=== PATIENT | male | born 1950 | race African-American/Black ===

== ENCOUNTER 2017-02-26 18:51 | Inpatient (IN) | payer OTHER ==
--- NOTE | ~2017-02-26 | CO ---
Unit #: [id number] #: [id number] Patient: GONZALO RUFFIN [id number] [facility] [address] [place], [place] [address] [id number] I MR#: [id number] NAME: GONZALO RUFFIN ROOM: [facility] Age: 66 Sex: M Admission Date: 02/27/2017 : 1950 Attending Physician: Sung Lora M.D. Primary Care Physician: No Primary Care Physician CONSULTATION REPORT REASON FOR CONSULTATION Medical management. HISTORY This pleasant 66-year-old male with hypertension and dementia, is admitted to the surgical service for a duodenal mass with possible perforation. Patient himself is a poor historian, and gives history. The patient noted an abdominal nodule near the umbilicus and underwent excision at [facility] last week. They were to see Dr. Salazar tomorrow. However, late last evening he developed nausea, vomiting, some abdominal discomfort and was brought to this emergency department where a CT scan shows an obstructing duodenal mass, with obstruction, and possible perforation. There is suggestion on the CT scan that be duodenal mass, which abuts the undersurface of the pancreas, does have metastatic disease. It is thought that the malignancy is in the duodenum itself, although could not exclude primary pancreatic malignancy. This case was discussed with [facility], and also Dr. Salazar. Dr. Salazar states that pathology of the umbilical mass last week is positive for adenocarcinoma. PAST MEDICAL HISTORY 1. Dementia. 2. Hypertension. 3. Anxiety. 4. Umbilical mass removed last week at [facility]. 5. Colonoscopy with polyps removed. ALLERGIES None. HOME MEDICATIONS Amlodipine, benazepril, BuSpar, Namenda, Aricept, oxycodone, HCTZ. FAMILY HISTORY Malignancy. SOCIAL HISTORY The patient lives with his . He was smoking one pack per day of tobacco until last week, does not drink alcohol. REVIEW OF SYSTEMS Impossible to obtain due to patient's dementia. Unit #: [id number] #: [id number] Patient: GONZALO RUFFIN PHYSICAL EXAMINATION GENERAL: Pleasantly confused 66-year-old male currently in no acute distress. VITAL SIGNS: Temperature 98.5, pulse 98, respirations 16, blood pressure 139/90, O2 saturation 100% on room air. HEENT: Eyes - PERRLA, extraocular muscles are intact. Pharynx is benign with poor dentition. NECK: Supple without adenopathy or thyromegaly. CHEST: Clear. CARDIAC: Normal S1 and S2 without S3, S4, or murmur. ABDOMEN: Bowel sounds are somewhat hyperactive. Patient does have mild epigastric tenderness. He has a healing incision of the mid abdomen with Steri-Strips still in place. No definite hepatosplenomegaly or masses. EXTREMITIES: Without clubbing, cyanosis or edema. Pedal pulses are diminished. NEUROLOGIC: Patient is pleasantly confused, oriented only to person. His cranial nerves are intact. He has equal strength throughout. DIAGNOSTIC STUDIES LABORATORY STUDIES: Hematocrit is 45.1, normal white count, platelet count and coags. SMA 12 is normal. Urinalysis is negative except for 1+ protein. Cardiac markers are negative. IMAGING STUDIES: Chest x-ray - 7 mm left upper quadrant calcification. CT scan shows an obstructing mass measuring about 4.2 cm of the distal duodenum, likely consistent with a primary duodenal malignancy. However, the duodenal mass abuts the undersurface of the pancreas, though cannot exclude a pancreatic malignancy. Evidence of obstruction with dilation of the stomach and proximal duodenum. Pneumoperitoneum and a small amount of ascites consistent with perforation. Left adrenal nodule and abnormal lymph node worrisome for metastatic disease. CARDIOLOGY STUDIES: EKG shows a sinus rhythm, rate 75 with occasional APC and right bundle branch block. ASSESSMENT 1. 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 This appears to be metastatic both by CT scan, and the fact that a skin nodule removed near the umbilicus last week at [facility] was positive for adenocarcinoma. 2. Dementia. 3. Hypertension. PLANS 1. Will check a CA 19-9 in the morning and consult oncology. 2. Blood pressure medications will be changed to an alternative route and will give p.r.n. medications for agitation. 3. SCDs for DVT prophylaxis. 4. Antibiotics, IV fluids, PPI, etc, have been ordered by the attending surgeries. Thank you very much for this consult, will follow with you. Dictated by... Unit #: [id number] #: [id number] Patient: GONZALO RUFFIN M.D. AML/ts TD: 02/27/2017 05:58 JOB #: [id number] CONSULTATION REPORT Page 1 of 1 X Yeny Tello MD CONSULTATION REPORT
--- NOTE | ~2017-02-26 | HP ---
Unit #: [id number] #: [id number] Patient: GONZALO RUFFIN [id number] [facility]. [place], [place] [address] [id number] I MR#: [id number] NAME: GONZALO RUFFIN ROOM: [facility] Age: 66 Sex: M Admission Date: 02/27/2017 : 1950 Attending Physician: Sung Lora M.D. Primary Care Physician: No Primary Care Physician HISTORY AND PHYSICAL HISTORY AND EXAM Mr. Ruffin is a 66-year-old gentleman with dementia and agitation who came to the emergency department because of nausea, vomiting, and abdominal pain. By history he had undergone a periumbilical biopsy of a mass last week at [facility] and it turned out to be adenocarcinoma. Here in the ER a CT scan of the abdomen an pelvis was performed and it showed an obstructing duodenal mass with evidence of metastatic disease and a probable contained retroperitoneal perforation. The mass appears to be centered around the junction of the third and fourth portion of the duodenum, abutting the pancreatic head. From the study done, it is hard to assess if there is any involvement of the vessels in this area. The patient had an NG tube placed to decompress his markedly enlarged stomach but due to his dementia and agitation he has since pulled that out. PAST MEDICAL HISTORY Dementia, hypertension, anxiety, recent biopsy of an umbilical mass, previous colonoscopy with polypectomy. ALLERGIES No allergy to medication. HOME MEDICATIONS Include amlodipine, benazepril, BuSpar, Namenda, Aricept, oxycodone, and hydrochlorothiazide. FAMILY HISTORY Unknown. SOCIAL HISTORY Lives at home with his . He has grown children who are not here. He continues to smoke a pack a day. His denies the use of alcohol or recreational drugs. REVIEW OF SYSTEMS Unobtainable but his says he has not had any fever, chills, hematemesis, hematochezia, or melena. CURRENT PHYSICAL EXAMINATION GENERAL: The patient has been sedated in the ICU due to his agitation. Again patient is lethargic and agitated when you would try to exam him. Limited exam was done. VITAL SIGNS: His temperature is 98.1, pulse 68, respirations 14, blood pressure 120/66, O2 sats are 98% on 2 L. HEART: Regular rhythm. Unit #: [id number] #: [id number] Patient: GONZALO RUFFIN LUNGS: Clear. ABDOMEN: Nondistended and soft. There is no rebound tenderness. It is somewhat slightly full and distended in the epigastrium. EXTREMITIES: No edema. NEUROLOGIC: Not done. DIAGNOSTIC STUDIES LABORATORY STUDIES: Comprehensive metabolic panel was within normal limits. INR is 1.1, white count 7,700, hemoglobin 14.7, platelets 258,000. CA 19-9 pending. Urinalysis - negative for infection. IMAGING STUDIES: CT scan as described. ASSESSMENT AND PLAN 66-year-old gentleman with dementia, has a completely obstructing duodenal mass in the junction of the third and fourth portion of the duodenum abutting the pancreatic head. On CT scan there is evidence of metastatic disease and localized retroperitoneal perforation. The position of this mass and the fact that it is perforated and there is evidence of metastatic disease, as well as biopsy proven metastatic disease to the periumbilical area make surgery nearly prohibitive. This would require a Whipple procedure but before that could be done, studies would need to be done to see if there is any involvement of the superior mesenteric vessels of the portal vein. Given his dementia, perioperative care would be very difficult. Medical oncology has been consulted to consider chemotherapy but again given his advanced dementia I do not know how well he would tolerate that. Replacing his NG tube is probably futile and may actually initiate vomiting and aspiration. If the family decides not to pursue any surgery, then percutaneous endoscopic gastrostomy tube could be placed to allow gastric decompression. I discuss this at length with his . We also discussed the possibility of Hospice care. All of her questions were answered. We will await medical oncology input before making a final decision. Dictated by Donald Goodwin TD: 02/27/2017 08:11 JOB #: [id number] HISTORY AND PHYSICAL Page 1 of 1 X Vernon Chinchilla MD HISTORY AND PHYSICAL
--- NOTE | ~2017-02-26 | DS ---
Unit #: [id number] #: [id number] Patient: GONZALO RUFFIN [id number] [facility] [address] [facility]. [place], [place] [address] [id number] I MR#: [id number] NAME: GONZALO RUFFIN ROOM: 467 Age: 66 Sex: M Admission Date: 02/27/2017 : 1950 Discharge Date: 03/02/2017 Attending Physician: Sung Lora M.D. Primary Care Physician: Primary Care Physician No DISCHARGE SUMMARY HOSPITAL COURSE Mr. Ruffin is a 66-year-old gentleman, who has some dementia, who presented to the emergency room at [facility] with progressive nausea, vomiting, and abdominal pain. After he was evaluated, we found that he had a biopsy-proven adenocarcinoma and a CT scan in the ER revealed that he had an obstructing duodenal mass with a contained retroperitoneal perforation. On the CT scan, there was evidence of metastatic disease as well. After full discussion of options with the patient and family, it was decided that this would not be a resectable lesion and they did not want to undergo chemotherapy after discussion of adjuvant therapy options with Medical Oncology. Because he was completely obstructed and because of his dementia, we were unable to keep an NG tube down, but once we got an NG tube down and got his stomach decompressed, he was taken to endoscopy where a percutaneous endoscopic gastrostomy tube was placed to allow ongoing decompression of his stomach. Hospice has been consulted and once he has been seen by hospice, he will be discharged home under hospice care. Dictated by... Donald Goodwin/andres TD: 03/04/2017 03:08 JOB #: [id number] DISCHARGE SUMMARY Page 1 of 1 X Vernon Chinchilla MD X DISCHARGE SUMMARY
--- NOTE | ~2017-02-26 | CT2 ---
[facility] A Service of [facility] & [facility] RADIOLOGY TEXT RESULTS PATIENT: GONZALO RUFFIN LOCATION: [facility] 467-01 : [birth year] UNIT #: [id number] AGE: [address]: Sung Lora SEX: M ORDER DR: [id number] [facility] [address] [facility]. [place], [place] [address] [id number] I MR#: [id number] Acc #: [id number] NAME: GONZALO RUFFIN : 1950 SEX: M STUDY DATE/TIME: 02/26/2017 23:23 UNIT: [facility] ROOM: [facility] STUDY DESCRIPTION: CT Abd and Pelv W Cont Attending Physician: Sung Lora M.D. Ordering Physician: Blair Jefferson D.O. Primary Care Physician: Primary Care Physician No MEDICAL IMAGING REPORT This report is preliminary unless electronic signature is present EXAM CT abdomen and pelvis INDICATION Weakness and vomiting. Mid abdominal pain. TECHNIQUE CT of the abdomen and pelvis with IV contrast. Coronal and sagittal reconstructions were obtained. This CT examination was performed with one or more of the following radiation dose reduction techniques: automatic exposure control, adjustment of mA and/or kV according to patient size, and iterative reconstruction. COMPARISON None available. FINDINGS There is free air in the upper abdomen indicating bowel perforation. The stomach and proximal duodenum are distended and fluid-filled. There is a focal transition of decompressed small bowel near the junction of the third and fourth portion of the duodenum. At the transition site, there is a irregular spiculated mass measuring 3.2 x 4.2 x 3.5 cm. The mass abuts the undersurface of the pancreas. This appears to be a duodenal mass, rather than a inferior extension of a pancreatic malignancy, however, pancreatic malignancy should still be considered in the differential diagnosis. No pancreatic ductal dilation. There is a nodule in the left adrenal gland measuring 1.9 cm. The liver enhances normally. Spleen is unremarkable. There is an exophytic cyst off the lower pole right kidney measuring 5.2 cm. 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 The remaining small bowel is not dilated. Colon is decompressed. The appendix is normal. There is a large volume of stool in the rectum. [facility] A Service of [facility] RADIOLOGY TEXT RESULTS PATIENT: GONZALO RUFFIN LOCATION: [facility] 467-01 : [birth year] UNIT #: [id number] AGE: [address]: Sung Lora SEX: M ORDER DR: There is an abnormal lymph node in the gastrohepatic ligament measuring 1.0 x 1.8 cm. This abuts the celiac artery. There is a low attenuation collection along the anterior abdominal wall within the superficial soft tissues. This is presumably a hematoma/seroma. Patient appears to have had prior abdominoplasty of the mid rectus abdominis muscles. The abdominal aorta is normal in caliber. PELVIS: No pelvic mass. The bladder is unremarkable. No enlarged pelvic or inguinal lymph nodes. IMPRESSION 1. Obstructing mass at the junction of the third and fourth portions of the duodenum. The mass measures up to 4.2 cm and has imaging appearance of a primary duodenal malignancy. Of note the mass does abut the undersurface of the pancreas and an exophytic pancreatic adenocarcinoma could have a similar appearance. Correlation with an EGD would be recommended for a tissue diagnosis. 2. Gastric and proximal duodenal obstruction. The stomach and proximal duodenum are fluid-filled. 3. Pneumoperitoneum and small volume of ascites are indicative of bowel perforation. 4. Left adrenal nodule and abnormal lymph node at the gastrohepatic ligament are concerning for metastatic disease. Unexpected findings were called to the ER physician at 00:04 on 02/27/2017. Dictated by... Chavez Jerome M.D. THIS IS AN ELECTRONICALLY VERIFIED REPORT Chavez Jerome M.D. at 03/02/2017 2:13 PM JAN/luarie TD: 02/27/2017 06:25 JOB #: [id number] MEDICAL IMAGING REPORT Page 1 of 1 COPY
--- NOTE | ~2017-02-26 | CO ---
Unit #: [id number] #: [id number] Patient: GONZALO RUFFIN [id number] [facility] [address] [facility]. [place], [place] [address] [id number] I MR#: [id number] NAME: GONZALO RUFFIN ROOM: 467 Age: 66 Sex: M Admission Date: 02/27/2017 : 1950 Attending Physician: Sung Lora M.D. Primary Care Physician: Primary Care Physician No Consultation Date: 02/27/2017 CONSULTATION REPORT REASON FOR CONSULTATION Metastatic duodenal cancer. HISTORY OF PRESENT ILLNESS Mr. Gonzalo Ruffin is 66 years old with a history of dementia for the past 4 years. He was brought into the emergency room at [facility] with nausea and vomiting. He had undergone a biopsy of periumbilical mass last week in [facility] with pathology showing a metastatic adenocarcinoma. CT scan of his abdomen and pelvis done following admission shows free air in the upper abdomen indicating bowel perforation. Stomach and proximal duodenum are distended and fluid filled, focal small bowel at the junction of third and fourth parts of the duodenum with irregular spiculated measuring 3.4 x 4.2 to 3.5 cm. It appeared to be a duodenal mass or the inferior extension of the pancreatic malignancy. There was additionally noted left adrenal gland and a retroperitoneal node in the gastrohepatic ligament measuring 1 x 1.8 cm abutting the celiac artery. He has been seen by Dr. Chinchilla who feels surgically this would be extremely difficult requiring a modified Whipple procedure which given his advanced dementia would be questionable. Historical information is obtained primarily from the chart and the patient's who is at bedside. He apparently was diagnosed with dementia approximately 5 or 6 years ago. In recent months, this has gotten significantly worse. He is now dependent upon activities of daily living with his . He had an NG tube placed during his hospitalization which he pulled out. PAST MEDICAL HISTORY Dementia, hypertension, anxiety. ALLERGIES Apparently, no known medication allergies. FAMILY HISTORY Negative for cancer. SOCIAL HISTORY Smokes a pack a day. Lives at home with his and 4 grown children. REVIEW OF SYSTEMS Unobtainable. PHYSICAL EXAMINATION GENERAL: He is an elderly man, awake, alert, confused. VITAL SIGNS: Temperature is 98.3, pulse is 63, respiratory rate is 13, Unit #: [id number] #: [id number] Patient: GONZALO RUFFIN blood pressure 136/82, O2 saturations 99%. HEENT: Shows pupils are equal and reactive well to light. Mucous membranes are dry. NECK: Without adenopathy, JVD, or thyromegaly. CARDIOVASCULAR: First and second heart sounds are heard and regular. LUNGS: Chest expansion is symmetric. ABDOMEN: Slightly distended. Soft and nontender. Bowel sounds are present. EXTREMITIES: Warm with good pulses. NEUROLOGIC: He is awake and alert, but confused without any focal findings. DIAGNOSTIC STUDIES IMAGING STUDIES: Radiology; CT scan of the abdomen and pelvis which was confirmed with the findings as discussed above. I showed images and printed out a copy of this for his to discuss findings. LABORATORY RESULTS: CBC; white count of 6.2, hemoglobin 15.1, platelets 276,000. Basic metabolic panel shows a BUN of 14 and creatinine is 0.9. ASSESSMENT AND PLAN Mr. 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 I spoke to [facility]. He apparently had a benign biopsy and confirmation of diagnosis, had an excision of umbilical nodule which confirmed metastatic carcinoma last week. I discussed all this with his and indicated that at this point given the perforation, aggressive surgery with a Whipple procedure would be highly risky and given the setting of metastatic disease of little use in the prognosis. We discussed that he is not a candidate for chemotherapy and we discussed about hospice services and DNR. His does wish comfort measures, but wants to discuss with the family about DNR and hospice services. Discussed about transferring to the intensive care unit to which he agreed. I also spoke to Dr. Chinchilla about the current situation. Thank you for allowing me to participate in his care. Dictated by... Berhane Marquis M.D. RUDY/andres TD: 03/02/2017 05:46 JOB #: [id number] CONSULTATION REPORT Page 1 of 1 X Berhane Marquis MD CONSULTATION REPORT
--- NOTE | ~2017-02-26 | OR ---
Unit #: [id number] #: [id number] Patient: GONZALO RUFFIN [id number] [facility]. [place], [place] [address] [id number] I MR#: [id number] NAME: GONZALO RUFFIN ROOM: 467 Date of Procedure: 03/01/2017 Admission Date: 02/27/2017 Surgeon: Vernon Chinchilla M.D. : 1950 Attending Physician: Sung Lora M.D. OPERATIVE REPORT PREOPERATIVE DIAGNOSIS Obstructing adenocarcinoma of the duodenum. POSTOPERATIVE DIAGNOSIS Obstructing adenocarcinoma of the duodenum. PROCEDURE PERFORMED Esophagogastroduodenoscopy with percutaneous endoscopic gastrostomy placement. ANESTHESIA General endotracheal anesthesia. ESTIMATED BLOOD LOSS Less than 10 mL. INDICATIONS FOR PROCEDURE A 66-year-old gentleman admitted to the hospital with nausea and vomiting, and was found to have a completely obstructing duodenal adenocarcinoma. There was evidence of metastatic disease and after discussion of options with the patient and his family, they have opted for a PEG to allow for decompression and hospice care. DESCRIPTION OF PROCEDURE The patient was transported from his hospital room to the endoscopy suite and after appropriate monitoring and positioning, he was sedated by the anesthesiologist. A bite block was placed. The endoscope was passed through the oral cavity in the esophagus under direct vision. We passed through the esophagus into the stomach, insufflated the stomach, and passed through the pylorus. The stomach even though it has been decompressed with an NG tube, it was still somewhat dilated and I passed the scope as far as I could and could not actually visualize the mass in the fourth portion of the duodenum. However, there was some solid material distally in the duodenum. As I brought the scope back in the stomach, we transilluminated and palpated position for the PEG. The anterior abdominal wall was prepped and draped in usual sterile fashion. Local anesthetic was then infiltrated. Introducer needle was passed in the lumen of the stomach under direct vision. A guidewire was passed and grasped with a snare and brought out through the oral cavity. The gastrostomy tube was passed over the guidewire and out through the anterior abdominal wall. I then photodocumented the G-tube in the lumen of the stomach. The endoscope was removed. The guidewire was removed. Unit #: [id number] #: [id number] Patient: GONZALO RUFFIN The cross bridge clamp and endpiece were placed on the G-tube in the usual fashion. Dry sterile dressing was placed. Abdominal binder ordered. PEG was to be placed to gravity drainage. The patient tolerated the procedure well and hemodynamically stable throughout and transported back to his hospital room in stable condition. Dictated by... Donald Goodwin/andres TD: 03/01/2017 09:31 JOB #: [id number] OPERATIVE REPORT Page 1 of 1 X Vernon Chinchilla MD X PROCEDURE OPERATIVE NOTE
--- NOTE | ~2017-02-26 | CR72 ---
[facility] A Service of [facility] RADIOLOGY TEXT RESULTS PATIENT: GONZALO RUFFIN LOCATION: [place] : [birth year] UNIT #: [id number] AGE: [address]: Blair Jefferson DO SEX: M ORDER DR: [id number] [facility] [address] [place], [place] [address] [id number] MR#: [id number] Acc #: [id number] NAME: GONZALO RUFFIN : 1950 SEX: M STUDY DATE/TIME: 02/26/2017 20:31 UNIT: [facility] ROOM: STUDY DESCRIPTION: CR Chest Single View Portable Attending Physician: Blair Jefferson D.O. Ordering Physician: Blair Jefferson D.O. Primary Care Physician: No Primary Care Physician MEDICAL IMAGING REPORT This report is preliminary unless electronic signature is present EXAM Frontal chest, 02/26/2017. INDICATIONS 66-year-old male with weakness, chest pain, vomiting today. REPORT Frontal chest. COMPARISON No comparisons. FINDINGS Cardiac silhouette is within normal limits. The vascularity is unremarkable. Lung volumes are low and there is mild bronchovascular crowding. There is eventration or elevation of the left hemidiaphragm. Chronicity unclear without prior studies. Nonspecific calcification in the left upper quadrant measures 17 mm. This could potentially represent a calcified splenic artery aneurysm. IMPRESSION 1. Low-volume image otherwise negative frontal chest. 2. Nonspecific 17 mm calcification in the left upper quadrant. This could potentially represent a calcified splenic artery aneurysm. Dictated by... Alexander Reyes M.D. THIS IS AN ELECTRONICALLY VERIFIED REPORT Alexander Reyes M.D. at 02/26/2017 11:51 PM [facility] A Service [facility] RADIOLOGY TEXT RESULTS PATIENT: GONZALO RUFFIN LOCATION: [place] : [birth year] UNIT #: [id number] AGE: [address]: Blair Jefferson DO SEX: M ORDER DR: TD: 02/26/2017 23:23 JOB #: [id number] MEDICAL IMAGING REPORT Page 1 of 1 COPY
--- NOTE | ~2017-02-26 | EKG ---
PATIENT: GONZALO RUFFIN UNIT #: [id number] Ventricular Rate: 75 BPM Atrial Rate: 75 BPM P-R Interval: 180 ms QRS Duration: 132 ms Q-T Interval: 414 ms QTC Calculation(Bezet): 462 ms P [place]: 62 degrees Calculated R [place]: -47 degrees Calculated T [place]: 46 degrees Diagnosis Line: Sinus rhythm with occasional Premature ventricular Diagnosis Line: complexes Diagnosis Line: Left axis deviation Diagnosis Line: Right bundle branch block Diagnosis Line: Abnormal ECG Diagnosis Line: No previous ECGs available Diagnosis Line: Confirmed by TAHMINA OVIEDO MD ([id number]) on Diagnosis Line: 02/27/2017 8:02:33 AM INTERPRETING MD: IVELISSE CASAS
[2017-02-26 21:09] LABS: BASOPHIL% 0.7 % (0-2.5); DIFF IND NO; EOSINOPHIL% 0.4 % (0.0-7.0); HEMATOCRIT 45.1 % (38.0-50.0); HEMOGLOBIN 15.1 gm/dL (13.0-16.0); LYMPHOCYTE# 0.7 X10e3 (1.0-3.5); LYMPHOCYTE% 10.8 % (17.0-45.0); MEAN CELL VOLUME 89.3 FL (83-96); MEAN CORPUSCULAR HGB CONC 33.5 g/dL (30-36); MEAN PLATELET VOLUME 8.7 FL (6.5-11.5); MONOCYTE# 0.2 X10e3 (0-1.0); NEUTROPHIL# 5.2 X10e3 (1.5-7.1); NEUTROPHIL% 84.1 % (40-75); PLATELET COUNT 276 X10e3 (140-420); RED BLOOD COUNT 5.04 X10e (3.90-5.60); RED CELL DISTRIBUTION WIDTH 13.2 % (11.0-15.5); WHITE BLOOD COUNT 6.2 X10e3 (4.0-10.5)
[2017-02-26 21:22] LABS: POC - CKMB <1.0 ng/mL (0.0-7.9); POC - TROPONIN <0.05 ng/mL (<=0.05)
[2017-02-26 21:25] LABS: INR 1.1; PARTIAL THROMBOPLASTIN TIME 26.5 SECONDS (23.5-31.3); PROTHROMBIN TIME (PATIENT) 11.6 SECONDS (10.0-11.7)
[2017-02-26 21:34] LABS: ALBUMIN SERUM 4.3 g/dL (3.5-5.0); BILIRUBIN, DIRECT 0.1 mg/dL (0.0-0.2); BILIRUBIN,INDIRECT 0.7 mg/dL (0.0-0.9); BILIRUBIN,TOTAL 0.8 mg/dL (0.2-2.0); BUN/CREATININE RATIO 11.81; CALCIUM SERUM 9.8 mg/dL (8.4-10.2); CREATININE SERUM 1.1 mg/dL (0.6-1.4); GLOM FILT RATE Estimated 80.1 mL/min (>60); POTASSIUM 3.5 mmol/L (3.5-5.1)
[2017-02-26 22:01] LABS: URINE SOURCE CLEAN CATCH
[2017-02-26 22:04] LABS: URINE APPEARANCE CLEAR; URINE BILIRUBIN NEG (NEG); URINE BLOOD NEG (NEG); URINE COLOR DK YELLOW; URINE GLUCOSE NEG (NEG); URINE KETONE TRACE (NEG); URINE LEUKOCYTE ESTERASE TRACE (NEG); URINE NITRATE NEG (NEG); URINE PROTEIN 1+ (NEG); URINE SPECIFIC GRAVITY 1.027 (1.003-1.035)
[2017-02-26 22:07] LABS: URBCS1 AUWI 0-2 /[HPF] (0-2); URINE BACTERIA AUWI NEG (NEGATIVE); URINE SQUAMOUS EPITHELIAL CELL NONE SEEN /[HPF]; UWBCS1 AUWI 0-2 (0-5)
[2017-02-26 22:16] LABS: CULTURE INDICATED? NO
[2017-02-26 22:32] LABS: POC - CKMB <1.0 ng/mL (0.0-7.9); POC - TROPONIN <0.05 ng/mL (<=0.05)
[2017-02-27] MEDS ORDERED: NORVASC (01:22)
[2017-02-27] MEDS ORDERED: BUSPAR (01:23)
[2017-02-27] MEDS ORDERED: Namenda (01:26)
[2017-02-27] MEDS ORDERED: OXYCONTIN (01:32)
[2017-02-27] MEDS ORDERED: HCTZ (01:32)
[2017-02-27] MEDS ORDERED: ARICEPT (01:32)
[2017-02-27 05:11] LABS: BASOPHIL% 0.6 % (0-2.5); HEMOGLOBIN 14.7 gm/dL (13.0-16.0); LYMPHOCYTE% 13.2 % (17.0-45.0); MEAN CELL VOLUME 89.8 FL (83-96); MEAN CORPUSCULAR HGB CONC 33.3 g/dL (30-36); MEAN PLATELET VOLUME 8.1 FL (6.5-11.5); MONOCYTE# 0.3 X10e3 (0-1.0); NEUTROPHIL# 6.3 X10e3 (1.5-7.1); NEUTROPHIL% 82.2 % (40-75); PLATELET COUNT 258 X10e3 (140-420); RED CELL DISTRIBUTION WIDTH 13.6 % (11.0-15.5); WHITE BLOOD COUNT 7.7 X10e3 (4.0-10.5)
[2017-02-27 05:23] LABS: INR 1.1; PARTIAL THROMBOPLASTIN TIME 26.8 SECONDS (23.5-31.3)
[2017-02-27 05:24] LABS: DIFF IND NO
[2017-02-27 06:48] LABS: BUN/CREATININE RATIO 15.55; CALCIUM SERUM 9.8 mg/dL (8.4-10.2); CREATININE SERUM 0.9 mg/dL (0.6-1.4); GLOM FILT RATE Estimated 102.1 mL/min (>60); POTASSIUM 3.8 mmol/L (3.5-5.1)
[2017-02-28 03:43] LABS: BASOPHIL# 0.1 X10e3 (0-0.3); BASOPHIL% 0.9 % (0-2.5); DIFF IND NO; EOSINOPHIL% 0.1 % (0.0-7.0); HEMATOCRIT 42.6 % (38.0-50.0); HEMOGLOBIN 14.2 gm/dL (13.0-16.0); LYMPHOCYTE# 1.5 X10e3 (1.0-3.5); LYMPHOCYTE% 18.7 % (17.0-45.0); MEAN CELL VOLUME 90.6 FL (83-96); MEAN CORPUSCULAR HEMOGLOBIN 30.3 PG (28-34); MEAN CORPUSCULAR HGB CONC 33.4 g/dL (30-36); MEAN PLATELET VOLUME 8.7 FL (6.5-11.5); MONOCYTE# 0.4 X10e3 (0-1.0); MONOCYTE% 5.6 % (3.0-12.0); NEUTROPHIL# 5.8 X10e3 (1.5-7.1); NEUTROPHIL% 74.7 % (40-75); PLATELET COUNT 280 X10e3 (140-420); RED CELL DISTRIBUTION WIDTH 13.4 % (11.0-15.5); WHITE BLOOD COUNT 7.8 X10e3 (4.0-10.5)
[2017-02-28 04:10] LABS: ALBUMIN SERUM 3.9 g/dL (3.5-5.0); BILIRUBIN,TOTAL 0.7 mg/dL (0.2-2.0); BUN/CREATININE RATIO 10.9; CALCIUM SERUM 9.3 mg/dL (8.4-10.2); CREATININE SERUM 1.1 mg/dL (0.6-1.4); GLOM FILT RATE Estimated 80.1 mL/min (>60); POTASSIUM 4.1 mmol/L (3.5-5.1); PROTEIN TOTAL SERUM 7.3 g/dL (6.0-8.3)
[2017-03-02] MEDS ORDERED: DURAGESIC1 EAC1 TOP (12:48)
== END 2017-03-02 15:43 | DRG 374 ==
LOC: CED 18:51 → C4C 02-27 00:20 → CEDOF 02-27 00:20 → CED 02-27 00:34 → C4C 02-27 00:34 → CICCU3 02-27 02:00 → CEDOF 02-27 02:00 → CICCU3 02-27 02:00 → C4C 02-27 17:45 → CICCU3 02-27 17:45 → C4C 02-27 23:18
PROVIDERS: Emergency Medicine; Internal Medicine; Surgery
PROC: 0DH63UZ Insertion of Feeding Device into Stomach, Percutaneous Approach (ICD-10-PCS; principal; 2017-02-27)
DX: C17.0 Malignant neoplasm of duodenum (principal); K63.1 Perforation of intestine (nontraumatic); F03.90 Unspecified dementia, unspecified severity, without behavioral disturbance, psychotic disturbance, mood disturbance, and anxiety; Z66 Do not resuscitate; Z51.5 Encounter for palliative care; I10 Essential (primary) hypertension; Z86.010 Personal history of colon polyps; F41.9 Anxiety disorder, unspecified; F17.210 Nicotine dependence, cigarettes, uncomplicated
CPT/HCPCS: 36415; 71010; 74177; 80048; 80053; 80076; 81003; 82553; 82947; 83880; 84484; 85025; 85610; 85730; 86301; 93005; 96361; 96374; 99285; C9113; J0360; J0690; J1630; J2060; J2270; J2405; J2543; J3010; Q9967